=== PATIENT | female | born 1945 | race Caucasian/White ===

== ENCOUNTER → 2022-11-20 | Outpatient (CLI) | payer MEDICARE, MEDICAID | LOC: COL.RAD 15:53 | DX: R60.0 Localized edema (principal) ==

== ENCOUNTER → 2023-12-31 | Outpatient (CLI) | payer MEDICARE, MEDICAID | LOC: COL.CARD 09:34 | DX: J44.9 Chronic obstructive pulmonary disease, unspecified (principal); Z87.891 Personal history of nicotine dependence ==

== ENCOUNTER 2024-01-14 14:11 | Outpatient (RCR) | payer MEDICARE, MEDICAID | END 2024-01-20 | disposition home or self-care (01) | LOC: COL.CR | DX: J44.9 Chronic obstructive pulmonary disease, unspecified (principal) ==

== ENCOUNTER 2024-04-19 13:22 | Outpatient (RCR) | payer MEDICARE, MEDICAID | END 2024-04-21 | disposition home or self-care (01) | LOC: COL.CR | DX: Z02.89 Encounter for other administrative examinations (principal) ==